=== PATIENT | male | born 1985 | race Caucasian/White ===

== ENCOUNTER 2018-12-28 18:04 | Emergency (ER) | payer SELFPAY ==
[2018-12-28 18:47] LABS: BASOPHILS % 0.6 % (0.0-1.5); NEUTROPHILS # 5.4 # k/uL (1.4-7.7)
--- NOTE | 2018-12-28 19:10 | ED Physician Documentation ---
Psychological Disorders - HISTORIAN Historian: patient - HPI Stated Complaint: Suicidal Ideation Chief Complaint: Psychological Disorder Onset: other (unclear not able to verbalize ) Intent: wants to escape Situational Problems: Yes Related To: other ("other people" ) Further Comments: yes (He reports for "a while now" he has had people who are "gas lighting" me (he tried to extensively explain gaslighting although he was redirected after several attempts) he states he has heard things that are not there "not all the time and not now but I have like cruching steps" When asked repeatedly what brings him to the ER he states his family thinks he is crazy and they dont believe people would pick on him like this. Again he was asked what brings him to the ER he said a psychological eval. He then states "I have been to places like this and I know you can just transfer me" -- again discussed with pt that I need a specific reason for transfer and if he need a eval this can be done outpt - he then says I will take a gun or two pipes and break them apart to kill myself . Again I asked him again the specific reason for coming to the ER and he said for you to send me for a psychological evaluation - he denies ever having a eval or dx in the past. He then says if you let me go I will kill myself. with a gun) - Associated Symptoms Symptoms: depressed, angry, frustrated, agitated, hostile Suicidal: specific plan - ROS CONST: none NEURO/PSYCH: none EYES/ENT: none CVS/RESP: none - PAST HX Psychiatric problems: other (no specific dx ) Immunizations: UTD - Social HX Smoking History: cigarettes Drug Use: marijuana, methamphetamines - Family HX Family HX: other (none he notes ) - REVIEWED ASSESSMENTS Nursing Assessment Reviewed: Yes Vitals Reviewed: Yes <Mulu Tate - Last Filed: 12/29/18 06:52> <Pallavi Caldwell - Last Filed: 12/30/18 02:33> - PAST HX Allergies/Adverse Reactions: Allergies Allergy/AdvReac Type Severity Reaction Status Date / Time Sulfa (Sulfonamide Allergy Eye Verified 12/28/18 20:14 Antibiotics) Swelling Home Medications: Ambulatory Orders Medication Instructions Recorded Citalopram Hydrobromide 20 mg PO DAILY #14 tablet 12/29/18 [Citalopram HBr] Hydroxyzine Pamoate [Vistaril] 25 mg PO Q6H PRN #15 capsule 12/29/18 - VITAL SIGNS Vital Signs: Vital Signs Temp Pulse Resp BP Pulse Ox 98.8 F 89 19 132/98 98 12/29/18 07:16 12/29/18 07:16 12/29/18 07:16 12/29/18 07:16 12/29/18 07:16 Progress <Mulu Tate - Last Filed: 12/29/18 06:52> <Pallavi Caldwell - Last Filed: 12/30/18 02:33> - Progress Progress: 0: will call for placement - he is asking if he will be able to just go - explained with suicidal thoughts he is not allowed to just go DG 1957: Pt is aware we are awaiting an accepting facility DG [id number]: resting quietly in room - continue to await any facilities to place DG 0650: Pt care will be turned over to [facility] [facility] (Mulu Tate) [facility] was contacted and psychiatrist reviewed documentation and stated according to information provided patient can be treated on an outpatient basis. 07:00 Spoke with patient; he denies any SI/HI; states that he only said that because his family and staff kept asking him over and over about wanting to harm himself and he just "made up a story so everyone would shut up and back off". He states that he just needs his antidepressant and anxiety medications. After talking with patient he states that he has family support, he does not want to harm himself, he would like to follow up with me in the clinic in 2 weeks. Will give him 2 weeks worth of medication with the intent to follow up. (We Pallavi hodge) - Lab Results Lab Results: Lab Results 12/28/18 12/28/18 12/28/18 18:33 18:33 18:28 WBC RBC Hgb Hct MCV MCH MCHC RDW Plt Count Neut % (Auto) Lymph % (Auto) [place] % (Auto) Eos % (Auto) Baso % (Auto) Neut # (Auto) Lymph # (Auto) [place] # (Auto) Eos # (Auto) Baso # (Auto) Sodium Potassium Chloride Carbon Dioxide Anion Gap BUN Creatinine Estimated Creat Clear Est GFR ( Amer) Est GFR (Non-Af Amer) Glucose Calcium Total Bilirubin AST ALT Alkaline Phosphatase Total Protein Albumin TSH 0.640 mIU/l mIU/l (0.465-4.685) Free T4 Direct 1.54 ng/dL ng/dL (0.78-2.19) Free T3 Index Pending Urine Color Yellow (YELLOW) Urine Appearance Clear (CLEAR) Urine pH 5.5 (5.0 - 8.0) Ur Specific Harold 1.020 (1.010-1.030) Urine Protein Negative mg/dL mg/dL (NEGATIVE) Urine Ketones 1+ mg/dL H mg/dL (NEGATIVE) Urine Occult Blood Negative (NEGATIVE) Urine Nitrite Negative (NEGATIVE) Urine Bilirubin Negative (NEGATIVE) Urine Urobilinogen 0.2 Eu Eu (0.2-1.0) Ur Leukocyte Esterase Negative (NEGATIVE) Urine Glucose Negative mg/dL mg/dL (NEGATIVE) Opiates Screen Negative ng/mL ng/mL (<300) Oxycodone Screen Negative ng/mL ng/mL (<100) Methadone Screen Negative ng/mL ng/mL (<200) Acetaminophen Ur Barbiturates Screen Negative ng.mL ng.mL (<200) Tricyclic Antidepress Negative ng/mL ng/mL (<300) Phencyclidine Screen Negative ng/mL ng/mL (< 25) Amphetamines Screen Negative ng/mL ng/mL (<500) U Methamphetamines Scrn Negative ng/mL ng/mL (<500) MDMA Negative ng/mL ng/mL (<500) Benzodiazepines Screen Negative ng/mL ng/mL (<150) Urine Cocaine Screen Negative ng/mL ng/mL (<150) U Cannabinoids Screen Negative ng/mL ng/mL (< 50) Ethyl Alcohol 12/28/18 12/28/18 18:28 18:28 WBC 9.30 K/ul K/ul (4.00-12.00) RBC 4.81 M/ul M/ul (3.90-5.20) Hgb 14.7 g/dL g/dL (12.0-18.0) Hct 44.7 % % (37.0-53.0) MCV 93.0 fl fl (80.0-100.0) MCH 30.6 pg pg (28.0-34.0) MCHC 32.9 g/dL g/dL (30.0-36.0) RDW 12.2 % % (11.3-14.3) Plt Count 367 K/mm3 K/mm3 (130-400) Neut % (Auto) 57.3 % % (39.0-79.0) Lymph % (Auto) 34.7 % % (16.0-50.0) [place] % (Auto) 6.2 % % (0.0-11.0) Eos % (Auto) 1.2 % % (0.0-6.8) Baso % (Auto) 0.6 % % (0.0-1.5) Neut # (Auto) 5.4 # k/uL # k/uL (1.4-7.7) Lymph # (Auto) 3.2 # k/uL # k/uL (0.6-4.0) [place] # (Auto) 0.6 # k/uL # k/uL (0.0-0.9) Eos # (Auto) 0.1 # k/uL # k/uL (0.0-0.6) Baso # (Auto) 0.1 # k/uL # k/uL (0.0-0.5) Sodium 141 mmol/L mmol/L (137-145) Potassium 4.1 mmol/L mmol/L (3.5-5.1) Chloride 99 mmol/L mmol/L (98-107) Carbon Dioxide 30 mmol/L mmol/L (22-30) Anion Gap 16.1 BUN 13 mg/dL mg/dL (9-20) Creatinine 0.93 mg/dL mg/dL (0.66-1.25) Estimated Creat Clear 121 Est GFR ( Amer) > 60 (60 - ) Est GFR (Non-Af Amer) > 60 (60 - ) Glucose 93 mg/dL mg/dL (74-106) Calcium 10.0 mg/dL mg/dL (8.4-10.2) Total Bilirubin 1.3 mg/dL mg/dL (0.2-1.3) AST 35 U/L U/L (15-46) ALT 21 U/L U/L (0-50) Alkaline Phosphatase 52 U/L U/L (38-126) Total Protein 8.4 g/dL H g/dL (6.3-8.2) Albumin 5.1 g/dL H g/dL (3.5-5.0) TSH Free T4 Direct Free T3 Index Urine Color Urine Appearance Urine pH Ur Specific Harold Urine Protein Urine Ketones Urine Occult Blood Urine Nitrite Urine Bilirubin Urine Urobilinogen Ur Leukocyte Esterase Urine Glucose Opiates Screen Oxycodone Screen Methadone Screen Acetaminophen < 10.0 ug/mL L ug/mL (10-30) Ur Barbiturates Screen Tricyclic Antidepress Phencyclidine Screen Amphetamines Screen U Methamphetamines Scrn MDMA Benzodiazepines Screen Urine Cocaine Screen U Cannabinoids Screen Ethyl Alcohol < 10.0 mg/dL mg/dL (0.0-10.0) - Orders Orders: ED Orders Category Date Time Status Continuous EKG monitoring Q1H Care 12/28/18 18:17 Completed ACETAMINOPHEN LEVEL Routine Lab 12/28/18 18:28 Completed ALCOHOL MEDICAL USE ONLY Stat Lab 12/28/18 18:28 Completed CBC/PLATELET/DIFF Stat Lab 12/28/18 18:28 Completed CMP Stat Lab 12/28/18 18:28 Completed SALICYLATE LEVEL Stat Lab 12/28/18 18:28 Received THYROID PANEL (TSH, FT3, FT4) Stat Lab 12/28/18 18:28 Results UA MACRO DIP ONLY Routine Lab 12/28/18 18:33 Completed UDS [DRUG SCREEN URINE MEDICAL ONLY] Routine Lab 12/28/18 18:33 Completed EKG WITH COMPARISON Stat Ther 12/28/18 Ordered Psych Physical Exam - Physical Exam General Appearance: no acute distress, alert ENT: nml ENT inspection Eyes: PERRL Mental Status: mood/affect nml, suicidal ideation Suicide Attempts: denies Orientation: nml x3 Cranial Nerves: CN's intact as tested Sensory, Motor: nml motor response, nml gait, motor deficit Respiratory: no resp distress, chest non-tender, breath sounds normal CVS: reg rate & rhythm, heart sounds normal Abdomen: non-tender Skin: warm/dry, normal color Extremities: non-tender, normal range of motion, no evidence of injury, no edema <Mulu Tate - Last Filed: 12/29/18 06:52> Discharge Decision to Admit: NO <Mulu Tate - Last Filed: 12/29/18 06:52> Decision to Admit: NO Decision Time: 07:30 <Pallavi Caldwell - Last Filed: 12/30/18 02:33> Clincal Impression: Depression with anxiety Suicidal behavior Qualifiers: Attempted self-injury: without attempted self-injury Qualified Code(s): R46.89 - Other symptoms and signs involving appearance and behavior Prescriptions: Citalopram Hydrobromide [Citalopram HBr] 20 mg PO DAILY #14 tablet Hydroxyzine Pamoate [Vistaril] 25 mg PO Q6H PRN #15 capsule PRN Reason: Anxiety Referrals: Primary Doctor,No [Primary Care Provider] - 2 Days Additional Instructions: Take Citalopram 20 mg daily May take Hydroxyzine 25mg by mouth every 6 hours as needed for anxiety Follow up in clinic in 2 weeks ([phone]) Per RN patient was upset that he was not getting ativan Comments: Patient still denies any thoughts of suicide; just wanting his family to leave him alone (Pallavi Caldwell) Condition: Good Disposition: 01 HOME, SELF-CARE
[2018-12-28 19:14] LABS: eGFR (Non-African) > 60
[2018-12-29 07:20] VITALS: BP 132/98
[2018-12-29 09:23] LABS: CANNABINOIDS NEGATIVE ng/mL (< 50)
[2018-12-29 09:24] LABS: METHYLENEDIOXYMETHAMPHETAMINE NEGATIVE ng/mL (<500)
[2018-12-29 09:29] LABS: APPEARANCE,URINE CLEAR (CLEAR); COLOR,URINE YELLOW (YELLOW); OCCULT BLOOD,URINE NEGATIVE (NEGATIVE); PH URINE 5.5 (5.0 - 8.0); UROBILINOGEN URINE 0.2 Eu (0.2-1.0)
== END 2018-12-29 07:09 | disposition home or self-care (01) ==
LOC: ED 18:04
DX: R45.851 Suicidal ideations (principal)
CPT/HCPCS: 36415; 80053; 80320; 80377; 81002; 84439; 84443; 84481; 85025; 93005; 99282; 99283; G0480; G0481